=== PATIENT | male | born 1970 | race Caucasian/White ===

== ENCOUNTER 2025-05-04 12:31 | Inpatient (IN) | payer OTHER ==
[~2025-05-04] VITALS: Ht 172.7 cm; Wt 81.6 kg
[2025-05-04 13:20] LABS: GLUCOMETER DEV NAME(LOC) ERT.7; GLUCOSE,POINT OF CARE 332 MG/DL (70-110)
[2025-05-04 13:30] LABS: PLATELET COUNT (AUTO) 299 K/uL (150-450); RED BLOOD CELL COUNT(AUTO) 4.60 MIL/uL (4.50-5.90); RED CELL DISTRIBUTION WIDTH 14.5 % (11.5-14.5); WHITE BLOOD COUNT (AUTO) 5.7 K/uL (4.5-11.0)
[2025-05-04 13:37] LABS: CALCIUM, TOTAL 8.8 mg/dL (8.8-10.5); CREATININE 0.75 mg/dL (0.60-1.30); GLOMERULAR FILTR. RATE CALC > 60 mL/min (>60); GLUCOSE,RANDOM 316 mg/dL (70-110); SODIUM SERUM 134 mmol/L (136-145); UREA NITROGEN, BLOOD 7 mg/dL (7-18)
[2025-05-04 14:05] LABS: TROPONIN I-HIGH SENSITIVITY 4 ng/L (<76)
[2025-05-04] MEDS: CefTRIAXone 1 GM/DEXTROSE 50 ML IV ONE (15:36)
[2025-05-04] MEDS ORDERED: MAG HYDROX/ALUMINUM HYD/SIMETH ES 30 ML SUSPENSION UDCUP PO PRN (17:15)
[2025-05-04] MEDS ORDERED: PROMETHAZINE HCL 25 MG TABLET PO PRN (17:15)
[2025-05-04] MEDS ORDERED: BISACODYL 10 MG RECTAL RECTAL SUPPOSITORY PR PRN (17:15)
[2025-05-04] MEDS ORDERED: DICYCLOMINE HCL 10 MG CAPSULE PO PRN (17:15)
[2025-05-04] MEDS ORDERED: ONDANSETRON HCL 4 MG/2 ML VIAL IVP PRN (17:15)
[2025-05-04] MEDS ORDERED: MAGNESIUM HYDROXIDE SUSPENSION 30 ML UDCUP PO PRN (17:15)
[2025-05-04] MEDS ORDERED: ACETAMINOPHEN 325 MG TABLET PO PRN (17:15)
[2025-05-04] MEDS: SODIUM CHLORIDE 0.45% 1,000 ML IV SCH (18:20)
[2025-05-04] MEDS: VANCOMYCIN 1.5 GM/WATER(PEG) 300 ML IV ONE (18:20)
[2025-05-04 21:15] VITALS: BP 142/79; PULSE 63; RESP 18; TEMP 97.3; O2SAT 98
[2025-05-05] MEDS: VANCOMYCIN 1.25 GM/WATER(PEG) 250 ML IV SCH (00:15)
[2025-05-05] MEDS: HEPARIN SODIUM,PORCINE 5,000 UNITS/ML VIAL SQ SCH (00:15)
[2025-05-05 04:15] VITALS: BP 124/84; PULSE 91; RESP 18; TEMP 98.1; O2SAT 100
[2025-05-05 06:36] LABS: GLUCOMETER DEV NAME(LOC) 6S.1D; GLUCOSE,POINT OF CARE 264 MG/DL (70-110)
[2025-05-05 06:56] LABS: CALCIUM, TOTAL 8.6 mg/dL (8.8-10.5); CREATININE 0.75 mg/dL (0.60-1.30); GLOMERULAR FILTR. RATE CALC > 60 mL/min (>60); GLUCOSE,RANDOM 253 mg/dL (70-110); SODIUM SERUM 136 mmol/L (136-145); UREA NITROGEN, BLOOD 9 mg/dL (7-18)
[2025-05-05 08:00] VITALS: BP 141/84; PULSE 70; RESP 18; TEMP 97.7; O2SAT 100
[2025-05-05] MEDS: PANTOPRAZOLE SODIUM 40 MG DR TABLET PO SCH (08:40)
[2025-05-05] MEDS: VANCOMYCIN 1GM/WATER(PEG/NADA) 200 ML IV SCH (08:42)
[2025-05-05 09:23] VITALS: BP 141/84; PULSE 70; RESP 18; TEMP 97.7; O2SAT 100
[2025-05-05] MEDS ORDERED: DEXTROSE 50%-WATER 25 GM/50 ML SYRINGE IVP PRN (11:30)
[2025-05-05] MEDS: INSULIN LISPRO 100 UNITS/ML SQ PRN (11:33)
[2025-05-05 16:00] VITALS: BP 140/84; PULSE 89; RESP 18; TEMP 98.5; O2SAT 100
[2025-05-05 20:00] VITALS: BP 133/79; PULSE 70; RESP 18; TEMP 98.1; O2SAT 99
[2025-05-05 20:16] LABS: GLUCOMETER DEV NAME(LOC) 6S.1D; GLUCOSE,POINT OF CARE 209 MG/DL (70-110)
[2025-05-05 20:16] LABS: GLUCOMETER DEV NAME(LOC) 6N.2C; GLUCOSE,POINT OF CARE 252 MG/DL (70-110)
[2025-05-05] MEDS: ZOLPIDEM TARTRATE 5 MG TABLET PO PRN (20:18)
[2025-05-06] VITALS (7 sets, daily range): BP systolic 136–148; BP diastolic 76–89; PULSE 61–101; RESP 18–19; TEMP 98.1–99; O2SAT 96–100
[2025-05-06 06:10] LABS: GLUCOMETER DEV NAME(LOC) 6S.2; GLUCOSE,POINT OF CARE 243 MG/DL (70-110)
[2025-05-06 07:51] LABS: CALCIUM, TOTAL 8.3 mg/dL (8.8-10.5); CREATININE 0.69 mg/dL (0.60-1.30); GLOMERULAR FILTR. RATE CALC > 60 mL/min (>60); GLUCOSE,RANDOM 204 mg/dL (70-110); SODIUM SERUM 133 mmol/L (136-145); UREA NITROGEN, BLOOD 10 mg/dL (7-18)
[2025-05-06 17:15] LABS: GLUCOMETER DEV NAME(LOC) 6S.1D; GLUCOSE,POINT OF CARE 247 MG/DL (70-110)
[2025-05-06 17:41] LABS: GLUCOMETER DEV NAME(LOC) 6N.2C; GLUCOSE,POINT OF CARE 317 MG/DL (70-110)
[2025-05-07 04:06] VITALS: BP 123/71; PULSE 71; RESP 19; TEMP 98.2; O2SAT 95
[2025-05-07 06:34] VITALS: BP 135/83; PULSE 65; RESP 18
[2025-05-07 07:18] LABS: CALCIUM, TOTAL 8.9 mg/dL (8.8-10.5); CREATININE 0.67 mg/dL (0.60-1.30); GLOMERULAR FILTR. RATE CALC > 60 mL/min (>60); GLUCOSE,RANDOM 217 mg/dL (70-110); SODIUM SERUM 133 mmol/L (136-145); UREA NITROGEN, BLOOD 16 mg/dL (7-18)
[2025-05-07 08:29] VITALS: BP 130/88; PULSE 69; RESP 18; TEMP 98.8; O2SAT 98
[2025-05-07 08:46] LABS: GLUCOMETER DEV NAME(LOC) 6S.1D; GLUCOSE,POINT OF CARE 212 MG/DL (70-110)
[2025-05-07 08:46] LABS: GLUCOMETER DEV NAME(LOC) 6S.1D; GLUCOSE,POINT OF CARE 231 MG/DL (70-110)
[2025-05-07 08:51] LABS: GLUCOMETER DEV NAME(LOC) 6S.2; GLUCOSE,POINT OF CARE 194 MG/DL (70-110)
[2025-05-07] MEDS: LOPERAMIDE HCL 2 MG CAPSULE PO PRN (08:53)
[2025-05-07] MEDS: ACETAMINOPHEN 325 MG TABLET PO PRN (11:54)
[2025-05-07 13:51] LABS: GLUCOMETER DEV NAME(LOC) 6S.1D; GLUCOSE,POINT OF CARE 230 MG/DL (70-110)
[2025-05-07] MEDS: NICOTINE 21 MG/24 HOUR PATCH TD SCH (16:47)
[2025-05-07 19:45] VITALS: BP 130/73; PULSE 64; RESP 18; TEMP 98.6; O2SAT 96
[2025-05-07] MEDS: IBUPROFEN 600 MG TABLET PO PRN (20:16)
[2025-05-07 23:55] VITALS: BP 131/89; PULSE 69; RESP 18; TEMP 98.4; O2SAT 97
[2025-05-08 04:45] VITALS: BP 145/92; PULSE 76; RESP 18; TEMP 99.3; O2SAT 100
[2025-05-08 07:29] LABS: CALCIUM, TOTAL 8.9 mg/dL (8.8-10.5); CREATININE 0.62 mg/dL (0.60-1.30); GLOMERULAR FILTR. RATE CALC > 60 mL/min (>60); GLUCOSE,RANDOM 221 mg/dL (70-110); SODIUM SERUM 136 mmol/L (136-145); UREA NITROGEN, BLOOD 18 mg/dL (7-18)
[2025-05-08 07:40] LABS: GLUCOMETER DEV NAME(LOC) 6N.2C; GLUCOSE,POINT OF CARE 235 MG/DL (70-110)
[2025-05-08 07:40] LABS: GLUCOMETER DEV NAME(LOC) 6N.2C; GLUCOSE,POINT OF CARE 295 MG/DL (70-110)
[2025-05-08 08:41] VITALS: BP 138/88; PULSE 68; RESP 18; TEMP 99; O2SAT 100
[2025-05-08 12:55] LABS: GLUCOMETER DEV NAME(LOC) 6N.2C; GLUCOSE,POINT OF CARE 282 MG/DL (70-110)
[2025-05-08] MEDS ORDERED: SODIUM CHLORIDE 0.9% 500 ML IV ONE (15:29)
[2025-05-08 16:26] VITALS: BP 115/76; PULSE 68
[2025-05-08 20:05] VITALS: BP 141/86; PULSE 79; RESP 18; TEMP 99.3; O2SAT 97
[2025-05-08] MEDS: INSULIN GLARGINE,HUM.REC.ANLOG 100 UNITS/ML SQ SCH (20:18)
[2025-05-08 20:26] LABS: GLUCOMETER DEV NAME(LOC) 6N.2C; GLUCOSE,POINT OF CARE 222 MG/DL (70-110)
[2025-05-08 21:51] LABS: GLUCOMETER DEV NAME(LOC) 6S.1D; GLUCOSE,POINT OF CARE 243 MG/DL (70-110)
[2025-05-09 03:36] VITALS: BP 114/89; PULSE 74; RESP 18; TEMP 98.2; O2SAT 96
[2025-05-09 06:25] LABS: GLUCOMETER DEV NAME(LOC) 6N.2C; GLUCOSE,POINT OF CARE 234 MG/DL (70-110)
[2025-05-09 07:44] LABS: CALCIUM, TOTAL 9.1 mg/dL (8.8-10.5); CREATININE 0.61 mg/dL (0.60-1.30); GLOMERULAR FILTR. RATE CALC > 60 mL/min (>60); GLUCOSE,RANDOM 201 mg/dL (70-110); SODIUM SERUM 138 mmol/L (136-145); UREA NITROGEN, BLOOD 15 mg/dL (7-18)
[2025-05-09 08:46] VITALS: BP 116/74; PULSE 69; RESP 17; TEMP 98.2; O2SAT 96
[2025-05-09 09:00] VITALS: BP 116/74; PULSE 77; RESP 16; TEMP 98.2; O2SAT 100
[2025-05-09 13:35] LABS: GLUCOMETER DEV NAME(LOC) 6S.1D; GLUCOSE,POINT OF CARE 213 MG/DL (70-110)
[2025-05-09] MEDS: IPRATROPIUM BROMIDE 0.5 MG/2.5 ML NEB SOLUTION NEB PRN (15:59)
[2025-05-09] MEDS: ALBUTEROL SULFATE 2.5 MG/0.5 ML NEB SOLUTION NEB PRN (16:00)
[2025-05-09 16:06] VITALS: PULSE 77; RESP 16; O2SAT 100
[2025-05-09 16:18] VITALS: PULSE 77; RESP 16; O2SAT 100
[2025-05-09 17:40] LABS: GLUCOMETER DEV NAME(LOC) 6N.2C; GLUCOSE,POINT OF CARE 235 MG/DL (70-110)
[2025-05-09 19:51] VITALS: BP 106/66; PULSE 79; RESP 18; TEMP 98.4; O2SAT 98
[2025-05-10 00:55] LABS: GLUCOMETER DEV NAME(LOC) 6S.2; GLUCOSE,POINT OF CARE 253 MG/DL (70-110)
[2025-05-10 04:49] VITALS: BP 112/72; PULSE 69; RESP 18; TEMP 98.4; O2SAT 99
[2025-05-10 07:55] LABS: GLUCOMETER DEV NAME(LOC) 6S.1D; GLUCOSE,POINT OF CARE 220 MG/DL (70-110)
[2025-05-10 08:00] VITALS: BP 117/72; PULSE 70; RESP 19; TEMP 98; O2SAT 99
[2025-05-10 08:08] LABS: PLATELET COUNT (AUTO) 293 K/uL (150-450); RED BLOOD CELL COUNT(AUTO) 4.66 MIL/uL (4.50-5.90); RED CELL DISTRIBUTION WIDTH 14.5 % (11.5-14.5); WHITE BLOOD COUNT (AUTO) 7.1 K/uL (4.5-11.0)
[2025-05-10 08:29] LABS: ASPARTATE AMINOTRANSFERASE 23 U/L (15-37); CALCIUM, TOTAL 8.3 mg/dL (8.8-10.5); CREATININE 0.71 mg/dL (0.60-1.30); GLOMERULAR FILTR. RATE CALC > 60 mL/min (>60); GLUCOSE,RANDOM 199 mg/dL (70-110); TOTAL PROTEIN, SERUM 6.9 g/dL (6.4-8.2); UREA NITROGEN, BLOOD 16 mg/dL (7-18)
[2025-05-10 08:59] LABS: SODIUM SERUM 139 mmol/L (136-145)
[2025-05-10 20:17] VITALS: BP 134/96; PULSE 100; RESP 18; TEMP 97.5; O2SAT 100
[2025-05-11 00:51] LABS: GLUCOMETER DEV NAME(LOC) 6S.2; GLUCOSE,POINT OF CARE 230 MG/DL (70-110)
[2025-05-11 04:46] VITALS: BP 140/94; PULSE 70; RESP 20; TEMP 98; O2SAT 100
[2025-05-11 05:35] LABS: GLUCOMETER DEV NAME(LOC) 6N.2C; GLUCOSE,POINT OF CARE 209 MG/DL (70-110)
[2025-05-11 05:35] LABS: GLUCOMETER DEV NAME(LOC) 6N.2C; GLUCOSE,POINT OF CARE 174 MG/DL (70-110)
[2025-05-11 06:59] LABS: CALCIUM, TOTAL 8.9 mg/dL (8.8-10.5); CREATININE 0.66 mg/dL (0.60-1.30); GLOMERULAR FILTR. RATE CALC > 60 mL/min (>60); GLUCOSE,RANDOM 205 mg/dL (70-110); SODIUM SERUM 139 mmol/L (136-145); UREA NITROGEN, BLOOD 14 mg/dL (7-18)
[2025-05-11 07:36] VITALS: BP 133/75; PULSE 64; RESP 20; TEMP 98.2; O2SAT 97
[2025-05-11] MEDS ORDERED: SODIUM CHLORIDE 0.9% 500 ML IV ONE (07:54)
[2025-05-11 08:52] VITALS: BP 133/75; PULSE 64; RESP 20; TEMP 98.2; O2SAT 97
[2025-05-11 11:01] LABS: GLUCOMETER DEV NAME(LOC) 6S.2; GLUCOSE,POINT OF CARE 207 MG/DL (70-110)
[2025-05-11 12:16] LABS: GLUCOMETER DEV NAME(LOC) 6S.1D; GLUCOSE,POINT OF CARE 200 MG/DL (70-110)
[2025-05-11 20:30] VITALS: BP 130/82; PULSE 72; RESP 18; TEMP 98.6; O2SAT 97
[2025-05-12 04:25] VITALS: BP 123/74; PULSE 65; RESP 18; TEMP 98.6; O2SAT 95
[2025-05-12 05:41] LABS: GLUCOMETER DEV NAME(LOC) 6S.2; GLUCOSE,POINT OF CARE 242 MG/DL (70-110)
[2025-05-12 05:46] LABS: GLUCOMETER DEV NAME(LOC) 6S.1D; GLUCOSE,POINT OF CARE 190 MG/DL (70-110)
[2025-05-12 08:30] VITALS: BP 116/65; PULSE 55; RESP 18; TEMP 98; O2SAT 100
[2025-05-12] MEDS: BACLOFEN 10 MG TABLET PO PRN (09:13)
[2025-05-12 09:26] LABS: CALCIUM, TOTAL 8.5 mg/dL (8.8-10.5); CREATININE 0.60 mg/dL (0.60-1.30); GLOMERULAR FILTR. RATE CALC > 60 mL/min (>60); GLUCOSE,RANDOM 132 mg/dL (70-110); SODIUM SERUM 142 mmol/L (136-145); UREA NITROGEN, BLOOD 15 mg/dL (7-18)
[2025-05-12 11:35] LABS: GLUCOMETER DEV NAME(LOC) 6N.2C; GLUCOSE,POINT OF CARE 201 MG/DL (70-110)
[2025-05-12] MEDS: VANCOMYCIN 1GM/WATER(PEG/NADA) 200 ML IV SCH (15:43)
[2025-05-12] MEDS ORDERED: SULF-261 PO (17:08)
[2025-05-12 20:08] VITALS: BP 139/88; PULSE 85; RESP 20; TEMP 98.2; O2SAT 99
[2025-05-12] MEDS ORDERED: SODIUM CHLORIDE 0.9% 500 ML IV ONE (21:59)
[2025-05-13 05:46] LABS: GLUCOMETER DEV NAME(LOC) 6S.1D; GLUCOSE,POINT OF CARE 203 MG/DL (70-110)
[2025-05-13 05:46] LABS: GLUCOMETER DEV NAME(LOC) 6S.1D; GLUCOSE,POINT OF CARE 185 MG/DL (70-110)
[2025-05-13 06:16] LABS: GLUCOMETER DEV NAME(LOC) 6S.1D; GLUCOSE,POINT OF CARE 241 MG/DL (70-110)
[2025-05-13 06:52] LABS: CALCIUM, TOTAL 8.4 mg/dL (8.8-10.5); CREATININE 0.70 mg/dL (0.60-1.30); GLOMERULAR FILTR. RATE CALC > 60 mL/min (>60); GLUCOSE,RANDOM 225 mg/dL (70-110); SODIUM SERUM 141 mmol/L (136-145); UREA NITROGEN, BLOOD 13 mg/dL (7-18)
== END 2025-05-13 06:45 | disposition left against medical advice (07) | DRG 603 ==
LOC: EMS 12:33 → EDH 16:28 → 6S 21:15
PROVIDERS: ADMIT Hospitalist; ATTEND Hospitalist
PROC: 05HB33Z Insertion of Infusion Device into Right Basilic Vein, Percutaneous Approach (ICD-10-PCS; principal; 2025-05-07)
PROC: B54MZZA Ultrasonography of Right Upper Extremity Veins, Guidance (ICD-10-PCS; 2025-05-07)
DX: L03.115 Cellulitis of right lower limb (principal); F11.13 Opioid abuse with withdrawal; E11.65 Type 2 diabetes mellitus with hyperglycemia; E11.621 Type 2 diabetes mellitus with foot ulcer; L97.519 Non-pressure chronic ulcer of other part of right foot with unspecified severity; E11.40 Type 2 diabetes mellitus with diabetic neuropathy, unspecified; G47.00 Insomnia, unspecified; D63.8 Anemia in other chronic diseases classified elsewhere; Z53.29 Procedure and treatment not carried out because of patient's decision for other reasons; Z79.4 Long term (current) use of insulin
CPT/HCPCS: 36245; 36569; 76937; 80048; 80053; 80202; 82009; 82962; 84145; 84484; 85025; 87040; 87070; 87186; 87205; 94640; 94760; 96365; 96367; 99285; J0696; J1644; J1815; J7040